=== PATIENT | female | born 1995 | race Asian ===

== ENCOUNTER 2017-07-19 20:08 | Emergency (ER) | payer SELFPAY, OTHER ==
[2017-07-19] MEDS: HYDROCODONE/APAP (5/325) TAB PO (23:05)
== END 2017-07-20 01:22 | disposition left against medical advice (07) ==
LOC: FTE 07-20 01:22
DX: K08.89 Other specified disorders of teeth and supporting structures (principal); J45.909 Unspecified asthma, uncomplicated
CPT/HCPCS: 99284